=== PATIENT | female | born 1950 | race Caucasian/White ===

== ENCOUNTER 2016-08-07 06:33 | Emergency (ER) | payer BC ==
[~2016-08-07 06:33] MED LIST: ACID REDUCER20 MG PO; ASPIR 8181 MG PO; ATORVASTATIN CA40 MG PO; HYDROCHLOROTHIA25 MG PO; PROTONIX 40 MG40 M1 PO; TOPROL XL50 MG PO
[2016-08-07 07:26] LABS: HEMOGLOBIN 13.5 gm/dl (12.3-15.3); RED BLOOD COUNT 4.32 M/UL (4.00-5.10); WHITE BLOOD COUNT 7.7 K/UL (4.5-11.0)
[2016-08-07 07:50] LABS: BUN/CREATININE RATIO 17 (0-10)
== END 2016-08-07 09:58 | disposition home or self-care (01) ==
LOC: ER1 06:33
PROVIDERS: Physician Assistant
DX: R06.02 Shortness of breath (principal); I10 Essential (primary) hypertension; E78.5 Hyperlipidemia, unspecified; K21.9 Gastro-esophageal reflux disease without esophagitis; F17.210 Nicotine dependence, cigarettes, uncomplicated; Z79.82 Long term (current) use of aspirin; Z79.899 Other long term (current) drug therapy
CPT/HCPCS: 36415; 71010; 80053; 82550; 82553; 83874; 83880; 84484; 85025; 85379; 93005; 94664; 99285

== ENCOUNTER → 2020-05-22 | Outpatient (CLI) | payer MEDICARE, OTHER ==
[~2020-05-22] MED LIST changes: +ANTIVERT 25MG T25 MG PO
== END ==
LOC: RT 13:02
DX: I49.9 Cardiac arrhythmia, unspecified (principal); R00.1 Bradycardia, unspecified
CPT/HCPCS: 93005

== ENCOUNTER → 2020-07-16 | Outpatient (CLI) | payer MEDICARE, OTHER | LOC: HEART 5 08:00 | DX: R07.9 Chest pain, unspecified (principal); I08.3 Combined rheumatic disorders of mitral, aortic and tricuspid valves; I27.20 Pulmonary hypertension, unspecified; R93.1 Abnormal findings on diagnostic imaging of heart and coronary circulation | CPT/HCPCS: 78452; 93306; A9502; J2785 ==

== ENCOUNTER 2020-10-09 14:53 | Emergency (ER) | payer MEDICARE, OTHER ==
[2020-10-09 16:54] LABS: HEMOGLOBIN 12.3 gm/dl (12.3-15.3); RED BLOOD COUNT 3.84 M/UL (4.00-5.10); WHITE BLOOD COUNT 9.4 K/UL (4.5-11.0)
[2020-10-09 17:19] LABS: BUN/CREATININE RATIO 13 (0-10)
[2020-10-09] MEDS ORDERED: ASPIRIN CHEWABL81 MG PO (20:48)
== END 2020-10-09 21:00 | disposition home or self-care (01) ==
LOC: ER1 14:53
PROVIDERS: Physician Assistant
DX: R20.2 Paresthesia of skin (principal); F17.200 Nicotine dependence, unspecified, uncomplicated
CPT/HCPCS: 70450; 80053; 82550; 82553; 83874; 84484; 85025; 93005; 99284

== ENCOUNTER → 2020-10-11 | Outpatient (CLI) | payer MEDICARE, OTHER ==
[~2020-10-11] MED LIST changes: +ASPIRIN CHEWABL81 MG PO
== END ==
LOC: US 15:02
DX: I73.9 Peripheral vascular disease, unspecified (principal)
CPT/HCPCS: 93925

== ENCOUNTER → 2020-11-19 | Outpatient (CLI) | payer MEDICARE, OTHER | LOC: MRI 08:30 | DX: I63.9 Cerebral infarction, unspecified (principal); I65.29 Occlusion and stenosis of unspecified carotid artery; R90.89 Other abnormal findings on diagnostic imaging of central nervous system | CPT/HCPCS: 70496; 70498; 70551; Q9967 ==

== ENCOUNTER 2021-02-08 14:55 | Emergency (ER) | payer MEDICARE, OTHER ==
[~2021-02-08] VITALS: Ht 157.5 cm; Wt 56.7 kg
== END 2021-02-08 17:25 | disposition home or self-care (01) ==
LOC: ER1 14:55
DX: U07.1 COVID-19 (principal); Z23 Encounter for immunization
CPT/HCPCS: 71045; 99283; M0245

== ENCOUNTER → 2021-04-09 | Outpatient (CLI) | payer MEDICARE, OTHER | LOC: KOH-I 14:15 | DX: M54.2 Cervicalgia (principal); M54.6 Pain in thoracic spine; M47.812 Spondylosis without myelopathy or radiculopathy, cervical region; M47.814 Spondylosis without myelopathy or radiculopathy, thoracic region | CPT/HCPCS: 72040; 72070 ==

== ENCOUNTER → 2021-07-28 | Outpatient (CLI) | payer MEDICARE, OTHER | LOC: HEART 5 14:30 | DX: R06.02 Shortness of breath (principal) | CPT/HCPCS: 94060; 94729 ==